=== PATIENT | female | born 1955 ===

== ENCOUNTER 2024-07-26 15:54 | Outpatient (CLI) | payer SELFPAY ==
--- NOTE | ~2024-07-26 | XR_ITS ---
[id number] Ordering provider: Danish Wall History: . ONGOING PAIN AND LUMBAR SPASMS . Comparison: None. FINDINGS: VERTEBRAL BODIES: Normal height and alignment. No visible fracture or subluxation. The dens is intact . DISK SPACES: Narrowing of the disc spaces C3-C4, C5-C6 and C6-C7. Multilevel uncovertebral joint oste oarthritic changes. PARASPINOUS SOFT TISSUES: No prevertebral soft tissue swelling. IMPRESSION: No acute osseous abnormality cervical spine. Multilevel degenerative disc disease. Reviewed, dictated and finalized at location A.
--- NOTE | ~2024-07-26 | XR_ITS ---
3 VIEWS LUMBAR SPINE Ordering provider: Danish Wall History: . ONGOING PAIN AND LUMBAR SPASMS . Comparison: None. FINDINGS: VERTEBRAL BODIES:Levoscoliosis. No visible fracture or subluxation. DISK SPACES: Narrowing of the disc L1-L2 and L2-L3. SOFT TISSUES: Normal. Vascular calcifications. Fecal material in the colon suggestive of constipation. IMPRESSION: No acute osseous abnormality lumbar spine. Reviewed, dictated and finalized at location A.
== END 2024-07-26 15:55 | disposition home or self-care (01) ==
DX: M50.31 Other cervical disc degeneration, high cervical region (principal); M50.322 Other cervical disc degeneration at C5-C6 level; M50.323 Other cervical disc degeneration at C6-C7 level; S33.5XXA Sprain of ligaments of lumbar spine, initial encounter; S16.1XXA Strain of muscle, fascia and tendon at neck level, initial encounter; V89.2XXA Person injured in unspecified motor-vehicle accident, traffic, initial encounter; M62.830 Muscle spasm of back
CPT/HCPCS: 72040; 72110